=== PATIENT | female | born 1985 | race Caucasian/White ===

== ENCOUNTER 2020-05-26 21:35 | Emergency (ER) | payer MEDICAID, OTHER ==
[~2020-05-26] VITALS: Ht 165 cm; Wt 62.6 kg
[2020-05-26] MEDS ORDERED: TRZ50T PO (22:10)
[2020-05-26] MEDS ORDERED: TIZA4CAP PO (22:10)
[2020-05-26] MEDS ORDERED: SERT100T PO (22:10)
[2020-05-26] MEDS ORDERED: HYDR50CA PO (22:10)
[2020-05-26] MEDS ORDERED: TRAM50TA3 PO (22:10)
--- NOTE | 2020-05-26 23:13 | ED Back Pain ---
General Chief Complaint: Back Problems Stated Complaint: LOWER BACK PAIN/PINCHED NERVE/CYST ON R WRIST Nursing Triage Note: c/o pain from pinched nerve left flank radiating down left leg below knee. denies recent injury. [place] [facility] [place] Sepsis Screen: No Definite Risk Source of Information: Patient Exam Limitations: No Limitations History of Present Illness Date Seen by Provider: May 26, 2020 Time Seen by Provider: 23:07 Initial Comments 34-year-old female presents to the emergency room today with a chief complaint of left sided low back pain. Patient states that she was recently seen at an outlying facility, given Toradol without much relief of symptoms. She was also placed on a steroid Dosepak and given tramadol for pain relief. Patient states that for the first couple of days these medications seem to help however now the medications or not working. She denies any bowel or bladder incontinence. No complaints of urinary retention. No numbness tingling or weakness in her lower extremities. Patient states that the pain radiates down the back of her left leg and stops at the knee. She feels most comfortable when lying on her left side with her knees pulled up. She states when she was working this evening she was having increased pain. No recent traumatic injuries. No recent illnesses. All other review of systems reviewed and negative except as stated above. Location: Lumbar Spine Timing/Duration: 2-3 Days Severity: Moderate Pain/Injury Location: Back Radiation: Upper Legs Method of Injury: Unknown Modifying Factors: Improves With Immobilization, Improves With Rest Associated Symptoms: lower back pain; No loss of bladder control, No loss of bowel control Allergies and Home Medications Allergies Coded Allergies: No Known Drug Allergies (Unverified , 05/26/20) Home Medications Hydrocodone/Acetaminophen 1 Each Tablet, 1 EACH PO Q6H PRN for PAIN-MODERATE (5- 7) Prescribed by: JOSE ABDULLAHI on 05/26/20 6293 Methocarbamol 750 Mg Tablet, 750 MG PO Q4H PRN for muscle spasm Prescribed by: JOSE ABDULLAHI on 05/26/202318 Patient Home Medication List Home Medication List Reviewed: Yes Review of Systems Constitutional: see HPI EENTM: no symptoms reported Respiratory: no symptoms reported Cardiovascular: no symptoms reported Gastrointestinal: no symptoms reported Genitourinary: no symptoms reported : No Musculoskeletal: back pain, muscle pain Skin: no symptoms reported Psychiatric/Neurological: No Symptoms Reported All Other Systems Reviewed Negative Unless Noted: Yes Past [place]-Flyqqu-[place] Hx Patient Social History Alcohol Use: Occasionally Uses Recreational Drug Use: No Smoking Status: Current Everyday Smoker Type Used: Cigarettes 2nd Hand Smoke Exposure: Yes Recent Foreign Travel: No Contact w/Someone Who Travel: No Recent Infectious Disease Expo: No Recent Hopitalizations: No Immunizations Up To Date Tetanus Booster (TDap): Unknown Seasonal Allergies Seasonal Allergies: No Past Medical History Surgeries: Yes (renal stents) Abdominal, Breast, Section, Eye Surgery, Gallbladder Respiratory: No Cardiac: No Neurological: No : No Last Menstrual Period: May 27, 2016 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 oz. kg; 22.00 BMI Method: General Appearance: No Apparent Distress, WD/WN Cardiovascular: Regular Rate, Rhythm Respiratory: Lungs Clear, Normal Breath Sounds, No Accessory Muscle Use, No Re spiratory Distress Gastrointestinal: Non Tender, Soft Extremity: Normal Capillary Refill, Normal Inspection, Normal Range of Motion Neurologic/Psychiatric: Alert, Oriented x3, No Motor/Sensory Deficits, Normal Mood/Affect, inside account executive II-XII Norm as Tested, Other (Negative straight leg raise bilaterally, 2+ DTRs at the patella and ankle jerks bilaterally) Skin: Normal Color, Warm/Dry Progress/Results/Core Measures Results/Orders My Orders Orders - JOSE ABDULLAHI MD Orphenadrine Inj (Ed Only) (Norflex Inje (05/26/20 23:15) Ketorolac Injection (Toradol Injection) (05/26/20 23:15) Rx-Hydrocodone/Apap 5-325 Mg (Rx-Vicodin (05/26/20 23:30) Medications Given in ED Current Medications Medications Dose Ordered Sig/Frieda Route Start Time Stop Time Status Last Admin Dose Admin Acetaminophen/ Hydrocodone Bitart 1 ea Q6H PRN PO 05/26/20 23:30 05/27/20 00:13 DC 05/27/20 00:12 1 EA Ketorolac Tromethamine 30 mg ONCE ONCE IM 05/26/20 23:15 05/26/20 23:16 DC 05/26/20 23:11 30 MG Orphenadrine Citrate 60 mg ONCE ONCE IM 05/26/20 23:15 05/26/20 23:16 DC 05/26/20 23:11 60 MG Vital Signs/I&O 05/26/20 05/27/20 22:02 00:12 Temp 36.8 36.7 Pulse 94 81 Resp 18 18 B/P (MAP) 102/67 (79) 108/69 (79) Pulse Ox 98 99 O2 Delivery Room Air Room Air Blood Pressure Mean: 79 Progress Progress Note : Time: 23:09 Progress Note 34-year-old female presents to the emergency department with a chief complaint of left-sided low back pain. Onset 3 days ago. Evaluation today includes a physical exam. Patient has no signs or symptoms or complaints of cauda equina syndrome. Patient is neurologically intact. She has negative straight leg raise bilaterally. Distal motor or sensory function is intact. Point tenderness over the left sciatic nerve and SI joint. No bony midline tenderness. Patient is already on oral prednisone. She has been taking tizani dine as well as Ultram without relief of symptoms. We will switch her to Robaxin as well as some [place] for pain relief. She is taking ibuprofen. Counseled on use of ibuprofen especially taking it with food. She verbalizes understanding. Will follow up with [facility]. All questions are sought and answered and she is stable for discharge. Departure Impression Primary Impression: Lumbar radiculopathy Disposition: 01 HOME, SELF-CARE Condition: Stable Departure-Patient Inst. Decision time for Depature: 00:05 Referrals: [facility] Patient Instructions: Radiculopathy, Back Extension Exercises Add. Discharge Instructions: Drink plenty of fluids to stay well hydrated. Take your ibuprofen with food as needed, every 6 hours. I have given you a prescription for Robaxin, take this every 4 hours as needed for muscle spasm/pain. I have also given you a prescription for hydrocodone. Please be very careful taking this medication as it can be habit forming/addictive. Take this only for severe pain every 6 hours. Be sure and finish your steroid Dosepak. Please call and follow-up with the [facility] for a primary care physician to further evaluate your pain. Scripts Hydrocodone/Acetaminophen (Hydrocodone-Acetamin 5-325 mg) 1 Each Tablet 1 EACH PO Q6H PRN for PAIN-MODERATE (5-7), #15 TAB Prov: JOSE ABDULLAHI MD 05/26/20 Methocarbamol (Robaxin-750) 750 Mg Tablet 750 MG PO Q4H PRN for muscle spasm, #20 TAB Prov: JOSE ABDULLAHI MD 05/26/20 JOSE ABDULLAHI MD May 26, 2020 23:13
[2020-05-26] MEDS ORDERED: KETOROLAC 30 MG/ML VIAL IM ONE (23:15)
[2020-05-26] MEDS ORDERED: ORPHENADRINE 60 MG/2 ML (NORFLEX) AMP (ED ONLY) IM ONE (23:15)
[2020-05-26] MEDS ORDERED: METH-313 PO (23:19)
[2020-05-26] MEDS ORDERED: ACHD5005 PO (23:19)
[2020-05-26] MEDS ORDERED: RX-HYDROCODONE/APAP 5/325 MG #4 TAB PK PO PRN (23:30)
[2020-05-27 00:12] VITALS: BP 108/69
== END 2020-05-27 00:12 | disposition home or self-care (01) ==
LOC: ER 21:39
DX: M54.16 Radiculopathy, lumbar region (principal); G89.29 Other chronic pain; F17.210 Nicotine dependence, cigarettes, uncomplicated
CPT/HCPCS: 99284

== ENCOUNTER 2020-06-10 20:06 | Emergency (ER) | payer MEDICAID ==
[~2020-06-10] VITALS: Ht 167 cm; Wt 63.5 kg
[~2020-06-10 20:06] MED LIST: ACHD5005 PO; HYDR50CA PO; METH-313 PO; SERT100T PO; TIZA4CAP PO; TRAM50TA3 PO; TRZ50T PO
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
[2020-06-10] MEDS ORDERED: ORPHENADRINE 60 MG/2 ML (NORFLEX) AMP (ED ONLY) IM ONE (21:00)
[2020-06-10] MEDS ORDERED: KETOROLAC 30 MG/ML VIAL IVP ONE (21:00)
[2020-06-10] MEDS ORDERED: ACHD5005 PO (21:11)
[2020-06-10] MEDS ORDERED: predniSONE 20 MG TAB PO ONE (21:15)
[2020-06-10 21:22] VITALS: BP 110/92
[2020-06-10] MEDS ORDERED: PRD20T PO ×2 (21:26→21:28)
== END 2020-06-10 21:34 | disposition home or self-care (01) ==
LOC: EDUNIT# 20:06 → ER 20:09
DX: M54.5 Low back pain (principal); R11.2 Nausea with vomiting, unspecified; R05 Cough; G89.29 Other chronic pain; F17.210 Nicotine dependence, cigarettes, uncomplicated
CPT/HCPCS: 99284

== ENCOUNTER 2020-10-16 14:43 | Emergency (ER) | payer MEDICAID ==
[~2020-10-16] VITALS: Ht 167.7 cm; Wt 68.0 kg
[~2020-10-16 14:43] MED LIST changes: +PRD20T PO
--- NOTE | 2020-10-16 15:03 | ED General ---
General Stated Complaint: BILAT KNEE PAIN/SWELLING Source of Information: Patient Exam Limitations: No Limitations (OZIEL PIRES APRN) History of Present Illness Date Seen by Provider: October 16, 2020 Time Seen by Provider: 15:01 Initial Comments to ER with reports of swelling to bilateral hands and most pronounced bilateral lower extremities from the mid tibia distally. This is been present for 7 days. No cough no fevers no shortness of breath. She just finished Zithromax for a sinus infection. Today she developed some right lower abdominal pain. Timing/Duration: 6-7 Days Severity: Moderate (OZIEL PIRES APRN) Allergies and Home Medications Allergies Coded Allergies: No Known Drug Allergies (Unverified , 05/26/20) Home Medications Furosemide 20 Mg Tablet, 20 MG PO DAILY Prescribed by: OZIEL PIRES on 10/16/20 172 Hydrocodone/Acetaminophen 1 Each Tablet, 1 EACH PO Q6H PRN for PAIN-MODERATE (5- 7) Prescribed by: JOSE ABDULLAHI on 05/26/202318 Hydrocodone/Acetaminophen 1 Each Tablet, 1 EACH PO Q6H PRN for PAIN-SEVERE (8- 10) Prescribed by: RODRIGO BARRY on 06/10/202110 Methocarbamol 750 Mg Tablet, 750 MG PO Q4H PRN for muscle spasm Prescribed by: JOSE ABDULLAHI on 05/26/202318 Pantoprazole Sodium 40 Mg Granpkt.dr, 40 MG PO DAILY Prescribed by: OZIEL PIRES on 10/16/20 172 Prednisone 20 Mg Tab, 20 MG PO DAILY Prescribed by: RODRIGO BARRY on 06/10/202127 Patient Home Medication List Home Medication List Reviewed: Yes (OZIEL PIRES APRN) Review of Systems Review of Systems Constitutional: see HPI; No chills, No fever EENTM: see HPI Respiratory: no symptoms reported Cardiovascular: no symptoms reported Genitourinary: no symptoms reported Musculoskeletal: no symptoms reported Skin: no symptoms reported Psychiatric/Neurological: No Symptoms Reported Hematologic/Lymphatic: No Symptoms Reported Immunological/Allergic: no symptoms reported (OZIEL PIRES APRN) Past Igzflbe-Xgfyrh-Yqkuow Hx Patient Social History Type Used: Cigarettes 2nd Hand Smoke Exposure: Yes Recent Hopitalizations: No (OZIEL PIRES APRN) Immunizations Up To Date Tetanus Booster (TDap): Unknown (OZIEL PIRES APRN) Seasonal Allergies Seasonal Allergies: No (OZIEL PIRES APRN) Past Medical History Surgeries: Yes (renal stents, hemorrhoids, hernia) Abdominal, Breast, Section, Eye Surgery, Gallbladder Respiratory: No Cardiac: No Neurological: No Female 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 oz. kg; 22.00 BMI Method: General Appearance: No Apparent Distress, WD/WN Eyes: Bilateral Eye Normal Inspection, Bilateral Eye PERRL, Bilateral Eye EOMI HEENT: PERRL/EOMI, TMs Normal Neck: Full Range of Motion, Normal Inspection Respiratory: No Accessory Muscle Use, No Respiratory Distress Cardiovascular: Regular Rate, Rhythm, Normal Peripheral Pulses Gastrointestinal: Normal Bowel Sounds, Soft, Tenderness (Right-sided) Extremity: Normal Capillary Refill, Other (2+ pitting edema bilateral feet. The edema extends proximally to the distal aspect of the tibia bilaterally. I do not appreciate any hand swelling but she states they feel swollen.) Neurologic/Psychiatric: Alert, Oriented x3 Skin: Normal Color, Warm/Dry (OZIEL PIRES APRN) Progress/Results/Core Measures Suspected Sepsis SIRS Temperature: Pulse: Respiratory Rate: Laboratory Tests 10/16/20 15:15: White Blood Count 5.5 Blood Pressure / Mean: Laboratory Tests 10/16/20 15:15: Creatinine 0.71, Platelet Count 240, Total Bilirubin 0.6 (OZIEL PIRES APRN) Results/Orders Lab Results Laboratory Tests Test 10/16/20 15:10 10/16/20 15:15 Range/Units Urine Color YELLOW Urine Clarity SL CLOUDY Urine pH 5.5 5-9 Urine Specific [place] <=1.005 1.016-1.022 Urine Protein NEGATIVE NEGATIVE Urine Glucose (UA) NEGATIVE NEGATIVE Urine Ketones NEGATIVE NEGATIVE Urine Nitrite NEGATIVE NEGATIVE Urine Bilirubin NEGATIVE NEGATIVE Urine Urobilinogen 0.2 < = 1.0 MG/DL Urine Leukocyte Esterase NEGATIVE NEGATIVE Urine RBC (Auto) NEGATIVE NEGATIVE Urine RBC NONE /HPF Urine WBC RARE /HPF Urine Squamous Epithelial Cells RARE /HPF Urine Crystals NONE /LPF Urine Bacteria LARGE H /HPF Urine Casts NONE /LPF Urine Mucus NEGATIVE /LPF Urine Culture Indicated YES Urine Opiates Screen NEGATIVE NEGATIVE Urine Oxycodone Screen NEGATIVE NEGATIVE Urine Methadone Screen NEGATIVE NEGATIVE Urine Propoxyphene Screen NEGATIVE NEGATIVE Urine Barbiturates Screen NEGATIVE NEGATIVE Ur Tricyclic Antidepressants Screen NEGATIVE NEGATIVE Urine Phencyclidine Screen NEGATIVE NEGATIVE Urine Amphetamines Screen NEGATIVE NEGATIVE Urine Methamphetamines Screen NEGATIVE NEGATIVE Urine Benzodiazepines Screen NEGATIVE NEGATIVE Urine Cocaine Screen NEGATIVE NEGATIVE Urine Cannabinoids Screen NEGATIVE NEGATIVE White Blood Count 5.5 4.3-11.0 10^3/uL Red Blood Count 3.22 L 3.80-5.11 10^6/uL Hemoglobin 10.4 L 11.5-16.0 g/dL Hematocrit 31 L 35-52 % Mean Corpuscular Volume 97 80-99 fL Mean Corpuscular Hemoglobin 32 25-34 pg Mean Corpuscular Hemoglobin Concent 33 32-36 g/dL Red Cell Distribution Width 16.8 H 10.0-14.5 % Platelet Count 240 130-400 10^3/uL Mean Platelet Volume 10.1 9.0-12.2 fL Immature Granulocyte % (Auto) 0 % Neutrophils (%) (Auto) 52 42-75 % Lymphocytes (%) (Auto) 35 12-44 % Monocytes (%) (Auto) 12 0-12 % Eosinophils (%) (Auto) 1 0-10 % Basophils (%) (Auto) 1 0-10 % Neutrophils # (Auto) 2.8 1.8-7.8 X 10^3 Lymphocytes # (Auto) 1.9 1.0-4.0 X 10^3 Monocytes # (Auto) 0.6 0.0-1.0 X 10^3 Eosinophils # (Auto) 0.1 0.0-0.3 10^3/uL Basophils # (Auto) 0.0 0.0-0.1 10^3/uL Immature Granulocyte # (Auto) 0.0 0.0-0.1 10^3/uL Erythrocyte Sedimentation Rate 17 0-20 MM/HR Sodium Level 142 135-145 MMOL/L Potassium Level 3.3 L 3.6-5.0 MMOL/L Chloride Level 107 98-107 MMOL/L Carbon Dioxide Level 24 21-32 MMOL/L Anion Gap 11 5-14 MMOL/L Blood Urea Nitrogen 5 L 7-18 MG/DL Creatinine 0.71 0.60-1.30 MG/DL Estimat Glomerular Filtration Rate > 60 BUN/Creatinine Ratio 7 Glucose Level 86 70-105 MG/DL Calcium Level 8.6 8.5-10.1 MG/DL Corrected Calcium 9.2 8.5-10.1 MG/DL Total Bilirubin 0.6 0.1-1.0 MG/DL Aspartate Amino Transf (AST/SGOT) 78 H 5-34 U/L Alanine Aminotransferase (ALT/SGPT) 49 0-55 U/L Alkaline Phosphatase 120 40-136 U/L C-Reactive Protein High Sensitivity 0.01 0.00-0.50 MG/DL B-Type Natriuretic Peptide 106.2 H <100.0 PG/ML Total Protein 6.4 6.4-8.2 GM/DL Albumin 3.3 3.2-4.5 GM/DL Thyroid Stimulating Hormone (TSH) 1.35 0.35-4.94 UIU/ML Free Thyroxine 0.64 L 0.70-1.48 NG/DL Serum Test, Qualitative NEGATIVE NEGATIVE (KEN MCMANUS MD) Micro Results Microbiology 10/16/20 Urine Culture - Preliminary, Resulted Gram Negative Kev (KEN MCMANUS MD) Vital Signs/I&O 10/16/20 16:11 Temp 36.1 Pulse 96 Resp 18 B/P (MAP) 113/81 (92) Pulse Ox 98 O2 Delivery Room Air (KEN MCMANUS MD) Vital Signs/I&O Capillary Refill : (OZIEL PIRES APRN) Progress Note : Progress Note I was the attending physician physically present in the emergency department during the care of this patient. I was not directly involved in this patient's care. (KEN MCMANUS MD) Diagnostic Imaging Diagonstic Imaging: CT Comments [facility]: [facility] REC#: [id number] PT STATUS: REG ER : 1985 PHYSICIAN: OZIEL PIRES APRN ADMIT DATE: 10/16/20/ER Draft Date of Exam:10/16/20 CT ABD/PELVIS WO(KIDNEY STONE) PROCEDURE: CT urinary tract, rule out kidney stone. TECHNIQUE: Multiple contiguous axial images were obtained through the abdomen and pelvis without the use of intravenous contrast. Auto Exposure Controls were utilized during the CT exam to meet ALARA standards for radiation dose reduction. INDICATION: Abdominal pain. History of kidney stones. COMPARISON: None. FINDINGS: Mild linear atelectasis or scarring in the lung bases. Cholecystectomy. There are some mild inflammatory changes adjacent to the pylorus, duodenal bulb and head of the pancreas without a discrete fluid collection or evidence of bowel obstruction. Hepatomegaly measuring up to 24 cm in the superior-inferior dimension. The spleen and adrenals are negative on this noncontrast exam. There are a few punctate nonobstructing calyceal tip renal stones in both kidneys. No hydronephrosis or ureteral stones. Pelvic phleboliths. Normal appendix. Bladder is negative. IUD. No free intraperitoneal air/fluid. No lymphadenopathy. No evidence of bowel obstruction. No acute osseous finding. IMPRESSION: 1. There are inflammatory changes in the region of the pylorus, duodenal bulb and head of the pancreas for which the origin is indeterminate. Findings could be due to pancreatitis or gastric/duodenal ulcer disease. No discrete fluid collection or free intraperitoneal air. No evidence of bowel obstruction. 2. Punctate nonobstructing calyceal tip renal stones in both kidneys. No hydronephrosis or ureteral stone. Dictated on workstation # [id number] Dict: 10/16/20 1709 Trans: 10/16/20 1717 [facility] [id number] Interpreted by: IGNACIA BARRIENTOS MD Electronically signed by: (OZIEL PIRES APRN) Departure Impression Primary Impression: Pedal edema Additional Impression: Hepatomegaly Disposition: 01 HOME, SELF-CARE Condition: Stable Departure-Patient Inst. Decision time for Depature: 17:20 (OZIEL PIRES APRN) Referrals: NAVNEET ADAM MD (PCP/Family) Primary Care Physician Patient Instructions: Dependent Edema (DC) Add. Discharge Instructions: 1. Lasix as directed. FOllow up with [facility] on Monday for recheck. Scripts Pantoprazole Sodium (Protonix) 40 Mg Rayne.dr 40 MG PO DAILY, #14 TAB Prov: OZIEL PIRES APRN 10/16/20 Furosemide (Lasix) 20 Mg Tablet 20 MG PO DAILY, #2 TAB Prov: OZIEL PIRES APRN 10/16/20 Work/School Note: Work Release Form Date Seen in the Emergency Department: October 16, 2020 Return to Work: October 18, 2020 OZIEL PIRES APRN October 16, 2020 15:03 KEN MCMANUS MD October 18, 2020 07:10
[2020-10-16 15:21] LABS: BILIRUBIN,URINE NEGATIVE (NEGATIVE); COLOR,URINE YELLOW; GLUCOSE, URINE (UA) NEGATIVE (NEGATIVE); KETONES,URINE NEGATIVE (NEGATIVE); LEUKOCYTE ESTERASE ,URINE NEGATIVE (NEGATIVE); NITRITE,URINE NEGATIVE (NEGATIVE); PH,URINE 5.5 (5-9); PROTEIN,URINE NEGATIVE (NEGATIVE)
[2020-10-16 15:37] LABS: BACTERIA,URINE LARGE /HPF; CLARITY,URINE SL CLOUDY; SQUAMOUS EPITHELIAL CELL,UR RARE /HPF; WBC,URINE RARE /HPF
[2020-10-16 15:46] LABS: ALBUMIN 3.3 GM/DL (3.2-4.5); CHLORIDE 107 MMOL/L (98-107); POTASSIUM 3.3 MMOL/L (3.6-5.0); SODIUM 142 MMOL/L (135-145)
[2020-10-16 15:48] LABS: CALCIUM 8.6 MG/DL (8.5-10.1)
[2020-10-16 15:49] LABS: GLUCOSE 86 MG/DL (70-105); TOTAL PROTEIN 6.4 GM/DL (6.4-8.2)
[2020-10-16 15:49] LABS: AMPHETAMINE SCREEN, URINE NEGATIVE (NEGATIVE); BARBITURATE SCREEN URINE NEGATIVE (NEGATIVE); BENZODIAZEPINES SCREEN URINE NEGATIVE (NEGATIVE); CANNABINOID SCREEN, URINE NEGATIVE (NEGATIVE); COCAINE SCREEN URINE NEGATIVE (NEGATIVE); METHADONE STAT NEGATIVE (NEGATIVE); METHAMPHETAMINE SCREEN URINE S NEGATIVE (NEGATIVE); OPIATE SCREEN URINE NEGATIVE (NEGATIVE); OXYCODONE STAT NEGATIVE (NEGATIVE); PROPOXYPHENE STAT NEGATIVE (NEGATIVE); TRICYCLIC ANTIDEPRESSANTS SCRE NEGATIVE (NEGATIVE)
[2020-10-16 15:50] LABS: CARBON DIOXIDE 24 MMOL/L (21-32)
[2020-10-16 15:51] LABS: BILIRUBIN,TOTAL 0.6 MG/DL (0.1-1.0)
[2020-10-16 15:52] LABS: ALKALINE PHOSPHATASE 120 U/L (40-136)
[2020-10-16 15:53] LABS: CREATININE SERUM 0.71 MG/DL (0.60-1.30); GFR ESTIMATED > 60
[2020-10-16 15:54] LABS: BASOPHILS % (AUTO) 1 % (0-10); BUN/CREATININE RATIO 7; EOSINOPHILS # (AUTO) 0.1 10^3/uL (0.0-0.3); EOSINOPHILS % (AUTO) 1 % (0-10); HEMATOCRIT 31 % (35-52); HEMOGLOBIN 10.4 g/dL (11.5-16.0); LYMPHOCYTES # (AUTO) 1.9 X 10^3 (1.0-4.0); LYMPHOCYTES % (AUTO) 35 % (12-44); MEAN CORPUSCULAR HEMOGLOBIN 32 pg (25-34); MEAN CORPUSCULAR HGB CONC 33 g/dL (32-36); MEAN CORPUSCULAR VOLUME 97 fL (80-99); MEAN PLATELET VOLUME 10.1 fL (9.0-12.2); MONOCYTES # (AUTO) 0.6 X 10^3 (0.0-1.0); MONOCYTES % (AUTO) 12 % (0-12); NEUTROPHILS # (AUTO) 2.8 X 10^3 (1.8-7.8); NEUTROPHILS % (AUTO) 52 % (42-75); PLATELET COUNT 240 10^3/uL (130-400); WHITE BLOOD COUNT 5.5 10^3/uL (4.3-11.0)
[2020-10-16 15:55] LABS: ALANINE AMINOTRANSFERASE 49 U/L (0-55)
[2020-10-16 16:00] LABS: ERYTHROCYTE SEDIMENTATION RATE 17 MM/HR (0-20)
[2020-10-16 16:11] VITALS: BP 113/81
[2020-10-16 16:15] LABS: FREE T4 (FREE THYROXINE) 0.64 NG/DL (0.70-1.48)
--- NOTE | 2020-10-16 17:11 | Diagnostic Imaging Report ---
INDICATION: Upper extremity swelling and history of nephrolithiasis. FINDINGS: The heart size, mediastinal configuration, and pulmonary vascularity are within normal limits. There is no pleural effusion, pneumothorax, or pneumonia. The osseous structures are unremarkable. IMPRESSION: No acute cardiopulmonary abnormality. Dictated by: Dictated on workstation # [id number]
[2020-10-16] MEDS ORDERED: HYDROcodone/APAP 5 MG/325 MG (LORTAB) TAB PO ONE (17:15)
--- NOTE | 2020-10-16 17:18 | Diagnostic Imaging Report ---
PROCEDURE: CT urinary tract, rule out kidney stone. TECHNIQUE: Multiple contiguous axial images were obtained through the abdomen and pelvis without the use of intravenous contrast. Auto Exposure Controls were utilized during the CT exam to meet ALARA standards for radiation dose reduction. INDICATION: Abdominal pain. History of kidney stones. COMPARISON: None. FINDINGS: Mild linear atelectasis or scarring in the lung bases. Cholecystectomy. There are some mild inflammatory changes adjacent to the pylorus, duodenal bulb and head of the pancreas without a discrete fluid collection or evidence of bowel obstruction. Hepatomegaly measuring up to 24 cm in the superior-inferior dimension. The spleen and adrenals are negative on this noncontrast exam. There are a few punctate nonobstructing calyceal tip renal stones in both kidneys. No hydronephrosis or ureteral stones. Pelvic phleboliths. Normal appendix. Bladder is negative. IUD. No free intraperitoneal air/fluid. No lymphadenopathy. No evidence of bowel obstruction. No acute osseous finding. IMPRESSION: 1. There are inflammatory changes in the region of the pylorus, duodenal bulb and head of the pancreas for which the origin is indeterminate. Findings could be due to pancreatitis or gastric/duodenal ulcer disease. No discrete fluid collection or free intraperitoneal air. No evidence of bowel obstruction. 2. Punctate nonobstructing calyceal tip renal stones in both kidneys. No hydronephrosis or ureteral stone. Dictated by: Dictated on workstation # [id number]
[2020-10-16] MEDS ORDERED: FURO-125 PO (17:21)
[2020-10-16] MEDS ORDERED: PANT40SU PO (17:24)
[2020-10-16] MEDS ORDERED: PANTOPRAZOLE 40 MG (PROTONIX) TAB PO ONE (17:30)
[2020-10-16] MEDS ORDERED: FUROSEMIDE 40 MG (LASIX) TAB PO ONE (17:30)
== END 2020-10-16 17:35 | disposition home or self-care (01) ==
LOC: EDUNIT# 14:43 → ER 14:45
DX: R60.0 Localized edema (principal); R16.0 Hepatomegaly, not elsewhere classified; R10.31 Right lower quadrant pain; G89.29 Other chronic pain; M54.9 Dorsalgia, unspecified; Z77.22 Contact with and (suspected) exposure to environmental tobacco smoke (acute) (chronic); Z79.891 Long term (current) use of opiate analgesic
CPT/HCPCS: 36415; 71045; 74176; 80053; 80306; 81000; 83880; 84439; 84443; 84703; 85025; 85652; 86141; 87077; 87088; 87186

== ENCOUNTER 2020-11-06 13:24 | Emergency (ER) | payer MEDICAID ==
[~2020-11-06] VITALS: Ht 167 cm; Wt 68.0 kg
[~2020-11-06 13:24] MED LIST changes: +FURO-125 PO; +PANT40SU PO
[2020-11-06 14:35] LABS: BASOPHILS # (AUTO) 0.1 10^3/uL (0.0-0.1); BASOPHILS % (AUTO) 1 % (0-10); EOSINOPHILS # (AUTO) 0.2 10^3/uL (0.0-0.3); EOSINOPHILS % (AUTO) 4 % (0-10); HEMATOCRIT 32 % (35-52); HEMOGLOBIN 10.3 g/dL (11.5-16.0); LYMPHOCYTES # (AUTO) 1.9 X 10^3 (1.0-4.0); LYMPHOCYTES % (AUTO) 33 % (12-44); MEAN CORPUSCULAR HEMOGLOBIN 34 pg (25-34); MEAN CORPUSCULAR HGB CONC 32 g/dL (32-36); MEAN CORPUSCULAR VOLUME 105 fL (80-99); MEAN PLATELET VOLUME 10.1 fL (9.0-12.2); MONOCYTES # (AUTO) 0.6 X 10^3 (0.0-1.0); MONOCYTES % (AUTO) 11 % (0-12); NEUTROPHILS % (AUTO) 52 % (42-75); PLATELET COUNT 256 10^3/uL (130-400); WHITE BLOOD COUNT 5.8 10^3/uL (4.3-11.0)
[2020-11-06 14:45] LABS: SMEAR SCAN COMMENT YES
[2020-11-06 14:55] LABS: CHLORIDE 104 MMOL/L (98-107); POTASSIUM 3.3 MMOL/L (3.6-5.0); SODIUM 141 MMOL/L (135-145)
[2020-11-06 14:56] LABS: CALCIUM 8.5 MG/DL (8.5-10.1)
[2020-11-06 14:57] LABS: GLUCOSE 84 MG/DL (70-105)
[2020-11-06 14:58] LABS: CARBON DIOXIDE 26 MMOL/L (21-32)
[2020-11-06 15:01] LABS: CREATININE SERUM 0.63 MG/DL (0.60-1.30); GFR ESTIMATED > 60
[2020-11-06 15:02] LABS: BUN/CREATININE RATIO 10
--- NOTE | 2020-11-06 16:39 | Diagnostic Imaging Report ---
PROCEDURE: US Venous Lower Ext Giuliano. TECHNIQUE: Multiple real-time grayscale images were obtained over the lower extremities in various projections, bilaterally. Additional duplex Doppler and color Doppler images were also obtained. INDICATION: Bilateral lower extremity pain. COMPARISON: None FINDINGS: The bilateral common femoral vein, femoral vein, deep femoral vein, and popliteal vein are normal in appearance. These vessels show normal compressibility, color flow and doppler augmentation. The visualized deep calf veins demonstrate no distinct intraluminal thrombus. IMPRESSION: 1. No sonographic evidence of deep venous thrombosis in the bilateral lower extremities. Findings reported to Dr. Landeros by the die maintenance technician at 1622 hours. Dictated by: Dictated on workstation # [id number]
[2020-11-06] MEDS ORDERED: NS 100 ML (IVPB) BAG IV ONE (16:45)
[2020-11-06] MEDS ORDERED: HOLD METFORMIN - RECEIVED CONTRAST 20 ML VIAL IV SCH (16:45)
[2020-11-06] MEDS ORDERED: IOHEXOL 350 MG/ML 100 ML (OMNIPAQUE 350) VIAL IV ONE (16:45)
--- NOTE | 2020-11-06 16:49 | ED General ---
General Chief Complaint: Lower Extremity Stated Complaint: SWOLLEN LEGS Source of Information: Patient Exam Limitations: No Limitations History of Present Illness Date Seen by Provider: Nov 06, 2020 Time Seen by Provider: 14:14 Initial Comments This 35-year-old woman presents to the emergency room with complaints of progressive edema of the lower extremities over the past couple of weeks. She has also started to develop some swelling and tightness in her hands. She denies any shortness of breath or chest pain. She cannot identify any triggering or exacerbating factors. She has not started any new medications. She has been treated with low-dose Lasix and steroids in the outpatient setting without successful improvement in symptoms. She has been seen both in the emergency room and in the clinic without any clear explanation of etiology of her swelling. Rheumatologic disorders such as lupus have been mentioned multiple times. Patient has no family history of autoimmune disorders that she is aware of. She is also experienced some abdominal pain. This was evaluated by CT scan on her prior ER visit. That scan was grossly unremarkable. Allergies and Home Medications Allergies Coded Allergies: No Known Drug Allergies (Unverified , 05/26/20) Home Medications Furosemide 20 Mg Tablet, 20 MG PO DAILY Prescribed by: OZIEL PIRES on 10/16/20 172 Furosemide 40 Mg Tablet, 40 MG PO DAILY Prescribed by: KEN FULLER on 11/06/20 165 Hydrocodone/Acetaminophen 1 Each Tablet, 1 EACH PO Q6H PRN for PAIN-MODERATE (5- 7) Prescribed by: JOSE ABDULLAHI on 05/26/202318 Hydrocodone/Acetaminophen 1 Each Tablet, 1 EACH PO Q6H PRN for PAIN-SEVERE (8- 10) Prescribed by: RODRIGO BARRY on 06/10/202110 Methocarbamol 750 Mg Tablet, 750 MG PO Q4H PRN for muscle spasm Prescribed by: JOSE ABDULLAHI on 05/26/20 231 Pantoprazole Sodium 40 Mg Granpkt.dr, 40 MG PO DAILY Prescribed by: OZIEL PIRES on 10/16/20 172 Potassium Chloride 20 Meq Tablet.er, 20 MEQ PO DAILY Prescribed by: KEN FULLER on 11/06/20 165 Prednisone 20 Mg Tab, 20 MG PO DAILY Prescribed by: RODRIGO BARRY on 06/10/202127 Patient Home Medication List Home Medication List Reviewed: Yes Review of Systems Review of Systems Constitutional: no symptoms reported EENTM: no symptoms reported Respiratory: no symptoms reported Cardiovascular: see HPI Gastrointestinal: no symptoms reported Genitourinary: no symptoms reported : No Musculoskeletal: no symptoms reported Skin: no symptoms reported Psychiatric/Neurological: No Symptoms Reported Hematologic/Lymphatic: No Symptoms Reported Immunological/Allergic: no symptoms reported Past Xhbagum-Whtuhh-Yjktfl Hx Past Med/Social Hx: Reviewed Nursing Past Med/Soc Hx Patient Social History Type Used: Cigarettes 2nd Hand Smoke Exposure: Yes Recent Hopitalizations: No Immunizations Up To Date Tetanus Booster (TDap): Unknown Seasonal Allergies Seasonal Allergies: No Past Medical History Surgeries: Yes (renal stents, hemorrhoids, hernia) Abdominal, Breast, Section, Eye Surgery, Gallbladder Respiratory: No Cardiac: No Neurological: No : No Reproductive Disorders: Yes 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 oz. kg; 24.00 BMI Method: General Appearance: No Apparent Distress, WD/WN HEENT: Normal ENT Inspection Neck: Normal Inspection Respiratory: Lungs Clear, Normal Breath Sounds, No Accessory Muscle Use, No Respiratory Distress Cardiovascular: Regular Rate, Rhythm, No Murmur, Other (Marked lower extremity pitting edema equal bilaterally, tender) Gastrointestinal: Normal Bowel Sounds, Non Tender, Soft Extremity: Normal Inspection, No Pedal Edema Neurologic/Psychiatric: Alert, Oriented x3, No Motor/Sensory Deficits, Normal Mood/Affect, implementation specialist II-XII Norm as Tested Skin: Normal Color, Warm/Dry Progress/Results/Core Measures Suspected Sepsis SIRS Temperature: Pulse: Respiratory Rate: Laboratory Tests 11/06/20 14:29: White Blood Count 5.8 Blood Pressure / Mean: Laboratory Tests 11/06/20 14:29: Creatinine 0.63, Platelet Count 256 Results/Orders Lab Results Laboratory Tests Test 11/06/20 14:29 11/06/20 15:31 Range/Units White Blood Count 5.8 4.3-11.0 10^3/uL Red Blood Count 3.04 L 3.80-5.11 10^6/uL Hemoglobin 10.3 L 11.5-16.0 g/dL Hematocrit 32 L 35-52 % Mean Corpuscular Volume 105 H 80-99 fL Mean Corpuscular Hemoglobin 34 25-34 pg Mean Corpuscular Hemoglobin Concent 32 32-36 g/dL Red Cell Distribution Width 17.2 H 10.0-14.5 % Platelet Count 256 130-400 10^3/uL Mean Platelet Volume 10.1 9.0-12.2 fL Immature Granulocyte % (Auto) 0 % Neutrophils (%) (Auto) 52 42-75 % Lymphocytes (%) (Auto) 33 12-44 % Monocytes (%) (Auto) 11 0-12 % Eosinophils (%) (Auto) 4 0-10 % Basophils (%) (Auto) 1 0-10 % Neutrophils # (Auto) 3.0 1.8-7.8 X 10^3 Lymphocytes # (Auto) 1.9 1.0-4.0 X 10^3 Monocytes # (Auto) 0.6 0.0-1.0 X 10^3 Eosinophils # (Auto) 0.2 0.0-0.3 10^3/uL Basophils # (Auto) 0.1 0.0-0.1 10^3/uL Immature Granulocyte # (Auto) 0.0 0.0-0.1 10^3/uL Sodium Level 141 135-145 MMOL/L Potassium Level 3.3 L 3.6-5.0 MMOL/L Chloride Level 104 98-107 MMOL/L Carbon Dioxide Level 26 21-32 MMOL/L Anion Gap 11 5-14 MMOL/L Blood Urea Nitrogen 6 L 7-18 MG/DL Creatinine 0.63 0.60-1.30 MG/DL Estimat Glomerular Filtration Rate > 60 BUN/Creatinine Ratio 10 Glucose Level 84 70-105 MG/DL Calcium Level 8.5 8.5-10.1 MG/DL C-Reactive Protein High Sensitivity 1.65 H 0.00-0.50 MG/DL B-Type Natriuretic Peptide 99.0 <100.0 PG/ML Serum Test, Qualitative NEGATIVE NEGATIVE Smear Scan YES Erythrocyte Sedimentation Rate 36 H 0-20 MM/HR My Orders Orders - KEN MCMANUS MD Us Venous Lower Ext Liang (11/06/20 15:15) Hs C Reactive Protein (11/06/20 15:16) Erythrocyte Sedimentation Rate (11/06/20 15:16) Iohexol Injection (Omnipaque 350 Mg/Ml 1 (11/06/20 16:45) Received Contrast (Hold Metformin- Contr (11/06/20 16:45) Ns (Ivpb) (Sodium Chloride 0.9% Ivpb Bag (11/06/20 16:45) Vital Signs/I&O 11/06/20 11/06/20 13:40 17:10 Temp 35.8 Pulse 110 88 Resp 18 18 B/P (MAP) 113/65 (81) 110/65 (81) Pulse Ox 96 96 Capillary Refill : Progress Note : Progress Note Ultrasound exams of the legs were negative for DVT. Labs were fairly unremarkable except for a mild increase in ESR and CRP. I discussed the situation with Dr. Toth in regard to imaging options. He suggested offering a CT of the abdomen and pelvis repeated with contrast. This would allow for evaluation of obstruction clotting of the vena cava. Patient did states she is starting to have swelling in her hands as well. IVC obstruction would likely not cause swelling in the upper extremities as well. After discussing this option with the patient, she wishes to seek referral to a specialist before committing to further CT scans. Patient was offered a higher dose of Lasix which she accepted. I am encouraging her to see rheumatology and/or gastroenterology. We did discuss the slight upward trend of her CRP and ESR as possible indicators of autoimmune or inflammatory problem. I am also going to encourage her to seek an echocardiogram ordered in the outpatient setting. Diagnostic Imaging Diagonstic Imaging: Ultrasound Plain Films/CT/US/NM/MRI: leg Comments NAME: JORDI LANIER [facility] REC#: [id number] PT STATUS: REG ER : 1985 PHYSICIAN: KEN MCMANUS MD ADMIT DATE: 11/06/20/ER Signed Date of Exam:11/06/20 US VENOUS LOWER EXT LIANG PROCEDURE: US Venous Lower Ext Liang. TECHNIQUE: Multiple real-time grayscale images were obtained over the lower extremities in various projections, bilaterally. Additional duplex Doppler and color Doppler images were also obtained. INDICATION: Bilateral lower extremity pain. COMPARISON: None FINDINGS: The bilateral common femoral vein, femoral vein, deep femoral vein, and popliteal vein are normal in appearance. These vessels show normal compressibility, color flow and doppler augmentation. The visualized deep calf veins demonstrate no distinct intraluminal thrombus. IMPRESSION: 1. No sonographic evidence of deep venous thrombosis in the bilateral lower extremities. Findings reported to Dr. Landeros by the senior sales associate at 1622 hours. Dictated by: Dictated on workstation # [id number] Dict: 11/06/20 1636 Trans: 11/06/20 1643 [facility] [id number] Interpreted by: MARCELINO SALDANA MD Electronically signed by: MARCELINO SALDANA MD 11/06/20 1646 Reviewed: Reviewed by Me Departure Impression Primary Impression: Anasarca Additional Impression: Leg pain, bilateral Disposition: 01 HOME, SELF-CARE Condition: Stable Departure-Patient Inst. Decision time for Depature: 16:45 Referrals: NAVNEET ADAM MD (PCP/Family) Primary Care Physician Patient Instructions: NO INSTRUCTIONS GIVEN Add. Discharge Instructions: The exact cause of your swelling is uncertain but may be related to an inflammatory process such as rheumatoid arthritis, lupus, inflammatory bowel disease, etc. Referral to a building carpenter helper and/or off premise service representative is recommended. You may also have a discussion with your primary care provider about possibly obtaining an outpatient echocardiogram. This may be beneficial in the evaluation of your swelling. You may try the higher dose of Lasix prescribed from the emergency room to help with your swelling. Also avoid excessive salt. Elevate your legs when at rest. Call with questions or concerns. Return to the ER if you are having worsening symptoms. If you need to return to the emergency room, consider presenting to the emergency room where there are specialist such as building carpenter helper and off premise service representative if you are stable destiny ugh to travel. Return to the nearest ER if you are having signs or symptoms of unstable status such as shortness of breath, chest pain, etc. All discharge instructions reviewed with patient and/or family. Voiced understanding. Scripts Potassium Chloride (Potassium Chloride) 20 Meq Tablet.er 20 MEQ PO DAILY, #5 TAB Prov: KEN MCMANUS MD 11/06/20 Furosemide (Lasix) 40 Mg Tablet 40 MG PO DAILY, #5 TAB Prov: KEN MCMANUS MD 11/06/20 Copy Copies To 1: NAVNEET ADAM MD, JOSHUA T MD Nov 06, 2020 16:49
[2020-11-06] MEDS ORDERED: FURO-124 PO (16:50)
[2020-11-06] MEDS ORDERED: POTA-51 PO (16:50)
[2020-11-06 17:10] VITALS: BP 110/65
== END 2020-11-06 17:18 | disposition home or self-care (01) ==
LOC: EDUNIT# 13:24 → ER 13:28
DX: R60.1 Generalized edema (principal); M79.605 Pain in left leg; M79.604 Pain in right leg; G89.29 Other chronic pain; M54.9 Dorsalgia, unspecified; Z77.22 Contact with and (suspected) exposure to environmental tobacco smoke (acute) (chronic); Z79.52 Long term (current) use of systemic steroids; Z79.891 Long term (current) use of opiate analgesic
CPT/HCPCS: 36415; 80048; 83880; 84703; 85025; 85652; 86141; 93970

== ENCOUNTER 2020-11-11 19:37 | Emergency (ER) | payer MEDICAID ==
[~2020-11-11] VITALS: Ht 167.7 cm; Wt 60.0 kg
[~2020-11-11 19:37] MED LIST changes: +FURO-124 PO; +POTA-51 PO
[2020-11-11 21:04] LABS: BILIRUBIN,URINE NEGATIVE (NEGATIVE); CLARITY,URINE CLEAR; COLOR,URINE YELLOW; GLUCOSE, URINE (UA) NEGATIVE (NEGATIVE); KETONES,URINE NEGATIVE (NEGATIVE); LEUKOCYTE ESTERASE ,URINE NEGATIVE (NEGATIVE); NITRITE,URINE POSITIVE (NEGATIVE); PROTEIN,URINE NEGATIVE (NEGATIVE)
[2020-11-11 21:10] LABS: BASOPHILS # (AUTO) 0.1 10^3/uL (0.0-0.1); BASOPHILS % (AUTO) 1 % (0-10); EOSINOPHILS # (AUTO) 0.2 10^3/uL (0.0-0.3); EOSINOPHILS % (AUTO) 2 % (0-10); HEMATOCRIT 40 % (35-52); HEMOGLOBIN 12.7 g/dL (11.5-16.0); LYMPHOCYTES # (AUTO) 1.7 10^3/uL (1.0-4.0); LYMPHOCYTES % (AUTO) 22 % (12-44); MEAN CORPUSCULAR HEMOGLOBIN 33 pg (25-34); MEAN CORPUSCULAR HGB CONC 32 g/dL (32-36); MEAN CORPUSCULAR VOLUME 104 fL (80-99); MONOCYTES # (AUTO) 0.7 10^3/uL (0.0-1.0); MONOCYTES % (AUTO) 8 % (0-12); NEUTROPHILS # (AUTO) 5.1 10^3/uL (1.8-7.8); NEUTROPHILS % (AUTO) 66 % (42-75); PLATELET COUNT 331 10^3/uL (130-400); WHITE BLOOD COUNT 7.7 10^3/uL (4.3-11.0)
[2020-11-11 21:19] LABS: BENZODIAZEPINES SCREEN URINE POSITIVE (NEGATIVE)
[2020-11-11 21:20] LABS: AMPHETAMINE SCREEN, URINE NEGATIVE (NEGATIVE); BARBITURATE SCREEN URINE NEGATIVE (NEGATIVE); CANNABINOID SCREEN, URINE NEGATIVE (NEGATIVE); COCAINE SCREEN URINE NEGATIVE (NEGATIVE); METHADONE STAT NEGATIVE (NEGATIVE); METHAMPHETAMINE SCREEN URINE S NEGATIVE (NEGATIVE); OPIATE SCREEN URINE POSITIVE (NEGATIVE); OXYCODONE STAT NEGATIVE (NEGATIVE); PROPOXYPHENE STAT NEGATIVE (NEGATIVE); TRICYCLIC ANTIDEPRESSANTS SCRE NEGATIVE (NEGATIVE)
[2020-11-11 21:29] LABS: ALANINE AMINOTRANSFERASE 23 U/L (0-55); ALBUMIN 3.7 GM/DL (3.2-4.5); ALKALINE PHOSPHATASE 144 U/L (40-136); BILIRUBIN,TOTAL 0.3 MG/DL (0.1-1.0); BUN/CREATININE RATIO 7; CALCIUM 9.3 MG/DL (8.5-10.1); CARBON DIOXIDE 25 MMOL/L (21-32); CHLORIDE 105 MMOL/L (98-107); CREATINE KINASE 47 U/L (29-168); CREATININE SERUM 0.68 MG/DL (0.60-1.30); GFR ESTIMATED > 60; GLUCOSE 96 MG/DL (70-105); POTASSIUM 3.6 MMOL/L (3.6-5.0); SODIUM 141 MMOL/L (135-145); TOTAL PROTEIN 7.5 GM/DL (6.4-8.2)
[2020-11-11 21:35] LABS: BACTERIA,URINE LARGE /HPF; WBC,URINE 0-2 /HPF
[2020-11-11 21:36] LABS: CREATINE KINASE MB 0.7 NG/ML (<6.6)
--- NOTE | 2020-11-11 21:43 | ED General ---
General Chief Complaint: Lower Extremity Stated Complaint: BILAT LEGS & FEET SWEELING / L SIDE OF FACE NUMB Nursing Triage Note: Pt ambulatory into ER with multiple complaints. Pt complains of leg swelling x1 month. Pt states that she has seen her PCP and been to ER now 3 times with no diagnosis. Pt also complains of left sided facial numbness on left side since waking up at 1400. Pt states that she also might of had a seizure today at some point but doesn't know. Pt also complains of leg pain. Nursing Sepsis Screen: No Definite Risk Source of Information: Patient History of Present Illness Date Seen by Provider: Nov 11, 2020 Time Seen by Provider: 20:30 Initial Comments PT ARRIVES VIA POV FROM HOME PT WITH MULTIPLE COMPLAINTS C/O BILATERAL LEG SWELLING AND PAIN DUE TO THE SWELLING FOR THE LAST MONTH SYMPTOMS NO DIFFERENT TONIGHT IN ANY WAY NO SWELLING ANYWHERE ELSE ON BODY--ONLY FROM THE KNEES DOWN. PT STATES SHE SAW DR. ADAM A FEW WEEKS AGO FOR THIS PROBLEM PT WAS SEEN HERE ON 10/16/20 AND AGAIN 11/06/20 FOR THIS PROBLEM. PT WAS STARTED ON LASIX 20 MG A DAY, PLUS POTASSIUM. THE NEXT VISIT IT WAS INCREASED TO 40 MG A DAY. SHE JUST STARTED THE HIGHER DOSE 2 DAYS AGO. SHE REPORTS NO IMPROVEMENT. STATES DR. ADAM STARTED HER ON CELEBREX FOR THE PAIN IN HER LEGS. ALSO STATES SHE HAS BEEN AT WORK ALL DAY, NOT A HOT ENVIRONMENT STATES "I GOT REAL PALE AND I KEPT GOING IN AND OUT OF IT ALL DAY"--NO ACTUAL SYNCOPAL EPISODES --STATES "I WENT TO MY KNEES ONE TIME" NO INJURIES OR FALLS FROM THESE EPISODES STATES THE LEFT SIDE OF HER FACE STARTED GOING NUMB AROUND 1700 NO FACIAL DROOP NO PROBLEMS TALKING OR SWALLOWING NO NUMBNESS TO TONGUE NO CHANGE IN VISION NO HEADACHE NO NAUSEA/VOMITING NO LOSS OF TASTE OR SMELL ALSO STATES SHE HAS "BEEN FEELING REALLY ANXIOUS SO I CHECKED MY BLOOD PRESSURE AND IT WAS REALLY HIGH--136/90" PT HAS NOT BEEN DX WITH HTN OR TAKE BP MEDICATIONS NO CHEST PAIN NO PALPITATIONS C/O SLIGHT SHORTNESS OF BREATH ALSO C/O ONGOING COUGH FOR THE LAST COUPLE OF WEEKS NO FEVER HAS NOT TAKEN ANYTHING FOR THE COUGH HAS NOT SOUGHT CARE FOR THIS COMPLAINT AT ANY TIME SYMPTOMS NO DIFFERENT TODAY NO GI SYMPTOMS VOIDING A NORMAL AMOUNT HAS BEEN EATING AND DRINKING NORMALLY PT HAS NOT RECEIVED COVID-19 VACCINE LMP--NOW. HAS IUD IN PLACE AND HAS NOT HAD A PERIOD FOR A LONG TIME. PCP: DR. KIA VALLEJO Allergies and Home Medications Allergies Coded Allergies: No Known Drug Allergies (Unverified , 05/26/20) Home Medications Furosemide 20 Mg Tablet, 20 MG PO DAILY Prescribed by: OZIEL PIRES on 10/16/20 172 Furosemide 40 Mg Tablet, 40 MG PO DAILY Prescribed by: KEN FULLER on 11/06/201649 Hydrocodone/Acetaminophen 1 Each Tablet, 1 EACH PO Q6H PRN for PAIN-MODERATE (5- 7) Prescribed by: JOSE ABDULLAHI on 05/26/202318 Hydrocodone/Acetaminophen 1 Each Tablet, 1 EACH PO Q6H PRN for PAIN-SEVERE (8- 10) Prescribed by: RODRIGO BARRY on 06/10/202110 Methocarbamol 750 Mg Tablet, 750 MG PO Q4H PRN for muscle spasm Prescribed by: JOSE ABDULLAHI on 05/26/202318 Nitrofurantoin Monohyd/M-Cryst 100 Mg Capsule, 1 TAB PO BID Prescribed by: PAUL LLANES on 11/11/202208 Pantoprazole Sodium 40 Mg Granpkt.dr, 40 MG PO DAILY Prescribed by: OZIEL PIRES on 10/16/201723 Potassium Chloride 20 Meq Tablet.er, 20 MEQ PO DAILY Prescribed by: KEN FULLER on 11/06/201649 Prednisone 20 Mg Tab, 20 MG PO DAILY Prescribed by: RODRIGO BARRY on 06/10/202127 Spironolactone 50 Mg Tablet, 50 MG PO DAILY Prescribed by: PAUL LLANES on 11/11/202208 Patient Home Medication List Home Medication List Reviewed: Yes Review of Systems Review of Systems Constitutional: no symptoms reported; No chills, No diaphoresis, No dizziness, No fever EENTM: see HPI; No ear pain, No blurred vision, No double vision, No eye pain, No vision loss, No nose congestion, No throat pain, No throat swelling Respiratory: cough; No orthopnea, No phlegm; short of breath; No wheezing Cardiovascular: see HPI; No chest pain; edema; No palpitations, No syncope Gastrointestinal: no symptoms reported; No abdominal pain, No diarrhea, No nausea, No vomiting Genitourinary: no symptoms reported LMP: Nov 11, 2020 Musculoskeletal: see HPI Skin: no symptoms reported Psychiatric/Neurological: See HPI, Anxiety; Denies Headache; Paresthesia; Denies Weakness Hematologic/Lymphatic: No Symptoms Reported Immunological/Allergic: no symptoms reported Past Asmaqvy-Lcyfsd-Vhglvn Hx Past Med/Social Hx: Reviewed and Corrections made Patient Social History Alcohol Use: Occasionally Uses Drug of Choice: THC Smoking Status: Current Everyday Smoker (1 PPD) Type Used: Cigarettes 2nd Hand Smoke Exposure: Yes Recent Infectious Disease Expo: No Recent Hopitalizations: No Substance type: Marijuana Immunizations Up To Date Tetanus Booster (TDap): Less than 5yrs Seasonal Allergies Seasonal Allergies: No Past Medical History Surgeries: Yes (renal stents, hemorrhoids, hernia; ORIF LEFT ORBIT) Abdominal, Breast, Section, Eye Surgery, Gallbladder, Rectal, Renal Respiratory: No Cardiac: No Neurological: No : No Reproductive Disorders: Yes 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 oz. kg; 21.00 BMI Method: General Appearance: No Apparent Distress, WD/WN HEENT: PERRL/EOMI, TMs Normal, Normal ENT Inspection, Pharynx Normal, Moist Mucous Membranes Neck: Full Range of Motion, Normal Inspection, Non Tender, Supple; No Carotid Bruit, No JVD Respiratory: Normal Breath Sounds, No Accessory Muscle Use, No Respiratory Distress Cardiovascular: Regular Rate, Rhythm, No JVD, No Murmur, Normal Peripheral Pul ses Gastrointestinal: Non Tender, Soft Back: No CVA Tenderness Extremity: Normal Capillary Refill, Normal Range of Motion, No Calf Tenderness, Pedal Edema (1-2+ BILATERALLY/EQUAL. 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; No Abnormal Cerebellar Tests, No Abnormal Gait, No Aphasia, No EOM Palsy, No Facial Droop Skin: Normal Color, Warm/Dry; No Rash; Other (MULTIPLE SORES/SCARS/SCABS TO FACE AND ARMS) Progress/Results/Core Measures Suspected Sepsis Recent Fever Within 48 Hours: No Infection Criteria Present: None New/Unexplained Altered Menta: No Sepsis Screen: No Definite Risk SIRS Temperature: Pulse: 84 Respiratory Rate: 16 Laboratory Tests 11/11/20 21:00: White Blood Count 7.7 Blood Pressure 130 /100 Mean: 110 Laboratory Tests 11/11/20 21:00: Creatinine 0.68, Platelet Count 331, Total Bilirubin 0.3 Results/Orders Lab Results Laboratory Tests Test 11/11/20 20:55 11/11/20 21:00 Range/Units Urine Color YELLOW Urine Clarity CLEAR Urine pH 7.0 5-9 Urine Specific [place] 1.020 1.016-1.022 Urine Protein NEGATIVE NEGATIVE Urine Glucose (UA) NEGATIVE NEGATIVE Urine Ketones NEGATIVE NEGATIVE Urine Nitrite POSITIVE H NEGATIVE Urine Bilirubin NEGATIVE NEGATIVE Urine Urobilinogen 0.2 < = 1.0 MG/DL Urine Leukocyte Esterase NEGATIVE NEGATIVE Urine RBC (Auto) 1+ H NEGATIVE Urine RBC NONE /HPF Urine WBC 0-2 /HPF Urine Squamous Epithelial Cells 2-5 /HPF Urine Crystals NONE /LPF Urine Bacteria LARGE H /HPF Urine Casts NONE /LPF Urine Mucus MODERATE H /LPF Urine Culture Indicated YES Urine Opiates Screen POSITIVE H NEGATIVE Urine Oxycodone Screen NEGATIVE NEGATIVE Urine Methadone Screen NEGATIVE NEGATIVE Urine Propoxyphene Screen NEGATIVE NEGATIVE Urine Barbiturates Screen NEGATIVE NEGATIVE Ur Tricyclic Antidepressants Screen NEGATIVE NEGATIVE Urine Phencyclidine Screen NEGATIVE NEGATIVE Urine Amphetamines Screen NEGATIVE NEGATIVE Urine Methamphetamines Screen NEGATIVE NEGATIVE Urine Benzodiazepines Screen POSITIVE H NEGATIVE Urine Cocaine Screen NEGATIVE NEGATIVE Urine Cannabinoids Screen NEGATIVE NEGATIVE White Blood Count 7.7 4.3-11.0 10^3/uL Red Blood Count 3.82 3.80-5.11 10^6/uL Hemoglobin 12.7 11.5-16.0 g/dL Hematocrit 40 35-52 % Mean Corpuscular Volume 104 H 80-99 fL Mean Corpuscular Hemoglobin 33 25-34 pg Mean Corpuscular Hemoglobin Concent 32 32-36 g/dL Red Cell Distribution Width 15.7 H 10.0-14.5 % Platelet Count 331 130-400 10^3/uL Mean Platelet Volume 10.0 9.0-12.2 fL Immature Granulocyte % (Auto) 0 % Neutrophils (%) (Auto) 66 42-75 % Lymphocytes (%) (Auto) 22 12-44 % Monocytes (%) (Auto) 8 0-12 % Eosinophils (%) (Auto) 2 0-10 % Basophils (%) (Auto) 1 0-10 % Neutrophils # (Auto) 5.1 1.8-7.8 10^3/uL Lymphocytes # (Auto) 1.7 1.0-4.0 10^3/uL Monocytes # (Auto) 0.7 0.0-1.0 10^3/uL Eosinophils # (Auto) 0.2 0.0-0.3 10^3/uL Basophils # (Auto) 0.1 0.0-0.1 10^3/uL Immature Granulocyte # (Auto) 0.0 0.0-0.1 10^3/uL Sodium Level 141 135-145 MMOL/L Potassium Level 3.6 3.6-5.0 MMOL/L Chloride Level 105 98-107 MMOL/L Carbon Dioxide Level 25 21-32 MMOL/L Anion Gap 11 5-14 MMOL/L Blood Urea Nitrogen 5 L 7-18 MG/DL Creatinine 0.68 0.60-1.30 MG/DL Estimat Glomerular Filtration Rate > 60 BUN/Creatinine Ratio 7 Glucose Level 96 70-105 MG/DL Calcium Level 9.3 8.5-10.1 MG/DL Corrected Calcium 9.5 8.5-10.1 MG/DL Magnesium Level 2.0 1.6-2.4 MG/DL Total Bilirubin 0.3 0.1-1.0 MG/DL Aspartate Amino Transf (AST/SGOT) 43 H 5-34 U/L Alanine Aminotransferase (ALT/SGPT) 23 0-55 U/L Alkaline Phosphatase 144 H 40-136 U/L Total Creatine Kinase 47 29-168 U/L Creatine Kinase MB 0.7 <6.6 NG/ML Troponin I < 0.028 <0.028 NG/ML B-Type Natriuretic Peptide 47.9 <100.0 PG/ML Total Protein 7.5 6.4-8.2 GM/DL Albumin 3.7 3.2-4.5 GM/DL Serum Test, Qualitative NEGATIVE NEGATIVE My Orders Orders - SHRADDHA,PAUL K DO Ed Iv/Invasive Line Start (11/11/20 20:39) Ekg Tracing (11/11/20 20:39) Monitor-Rhythm Ecg Trace Only (11/11/20 20:39) Ct Head Wo-R/O Stroke (11/11/20 20:39) Chest 1 View, Ap/Pa Only (11/11/20 20:39) BNP (11/11/20 20:39) Cbc With Automated Diff (11/11/20 20:39) Comprehensive Metabolic Panel (11/11/20 20:39) Creatine Kinase (11/11/20 20:39) Creatine Kinase Mb (11/11/20 20:39) Drug Screen Stat (Urine) (11/11/20 20:39) Hcg,Qualitative Serum (11/11/20 20:39) Magnesium (11/11/20 20:39) Ua Culture If Indicated (11/11/20 20:39) Troponin I (11/11/20 20:39) Urine Culture (11/11/20 20:55) Furosemide Injection (Lasix Injection) (11/11/20 22:00) Rx-Nitrofurantoin [place] (Rx-Macrobid) (11/11/20 21:51) Medications Given in ED Vital Signs/I&O 11/11/20 11/11/20 20:01 22:13 Temp 36.7 36.5 Pulse 84 90 Resp 16 18 B/P (MAP) 130/100 (110) 111/77 (110) Pulse Ox 96 97 O2 Delivery Room Air Room Air Capillary Refill : Less Than 3 Seconds Blood Pressure Mean: 110 Progress Note : Progress Note UNEVENTFUL ER STAY ECG Initial ECG Impression Date: Nov 11, 2020 Initial ECG Impression Time: 21:36 Initial ECG Rate: 84 Initial ECG Rhythm: Normal Sinus Diagnostic Imaging Comments CT HEAD--PER RADIOLOGIST REPORT AT 2149 FINDINGS: No intracranial hemorrhage, mass effect, hydrocephalus or extra-axial fluid collections. No CT evidence of a territorial infarction. ORIF in the floor of the left orbit. No acute osseous findings. Paranasal sinuses and mastoids are unremarkable. IMPRESSION: No acute intracranial CT findings. CXR--PER RADIOLOGIST REPORT FINDINGS: Normal heart size and central pulmonary vascularity. No focal pulmonary opacity. No pleural effusion or pneumothorax. No acute osseous findings. IMPRESSION: No acute cardiopulmonary findings. Reviewed: Reviewed by Me Departure Impression Primary Impression: DEPENDENT LEG EDEMA Additional Impressions: LEFT FACIAL PARESTHESIA UTI (urinary tract infection) Disposition: 01 HOME, SELF-CARE Condition: Stable Departure-Patient Inst. Decision time for Depature: 22:00 Referrals: NAVNEET ADAM MD (PCP/Family) Primary Care Physician Patient Instructions: Dependent Edema (DC), Paresthesia (DC), Urinary Tract Infection, Adult (DC) Add. Discharge Instructions: LIMIT YOUR SODIUM INTAKE TO 2 GRAMS OR LESS A DAY ELEVATE LEGS MUCH POSSIBLE GILBERT HOSE DAILY FOR SWELLING HOLD LASIX, CONTINUE POTASSIUM CONTINUE OTHER MEDICATIONS PRESCRIBED FOLLOW UP WITH YOUR DR THIS WEEK FOR FURTHER CARE All discharge instructions reviewed with patient and/or family. Voiced understanding. Scripts Nitrofurantoin Monohyd/M-Cryst (Macrobid 100 mg Capsule) 100 Mg Capsule 1 TAB PO BID, #20 CAP Prov: PAUL LLANES DO 11/11/20 Spironolactone (Spironolactone) 50 Mg Tablet 50 MG PO DAILY, #5 TAB Prov: PAUL LLANES DO 11/11/20 PAUL LLANES DO Nov 11, 2020 21:43
--- NOTE | 2020-11-11 21:48 | Diagnostic Imaging Report ---
PROCEDURE: CT head wo r/o stroke. TECHNIQUE: Multiple contiguous axial images were obtained through the brain without the use of intravenous contrast. Auto Exposure Controls were utilized during the CT exam to meet ALARA standards for radiation dose reduction. INDICATION: Dizziness. Edema. COMPARISON: None. FINDINGS: No intracranial hemorrhage, mass effect, hydrocephalus or extra-axial fluid collections. No CT evidence of a territorial infarction. ORIF in the floor of the left orbit. No acute osseous findings. Paranasal sinuses and mastoids are unremarkable. IMPRESSION: No acute intracranial CT findings. Dictated by: Dictated on workstation # [id number]
[2020-11-11] MEDS ORDERED: RX-NITROFURANTOIN 100 MG (MACROBID) CAP PPK#2 PO STA (21:51)
[2020-11-11] MEDS ORDERED: FUROSEMIDE 40 MG/4 ML INJ (LASIX) IVP ONE (22:00)
[2020-11-11] MEDS ORDERED: SPIR50TA4 PO (22:09)
[2020-11-11] MEDS ORDERED: NITR-65 PO (22:09)
[2020-11-11 22:13] VITALS: BP 111/77
--- NOTE | 2020-11-11 22:39 | Diagnostic Imaging Report ---
EXAM: CHEST 1 VIEW, AP/PA ONLY INDICATION: Dizziness and edema. COMPARISON: Chest radiograph 10/16/2020. FINDINGS: Normal heart size and central pulmonary vascularity. No focal pulmonary opacity. No pleural effusion or pneumothorax. No acute osseous findings. IMPRESSION: No acute cardiopulmonary findings. Dictated by: Dictated on workstation # [id number]
== END 2020-11-11 22:16 | disposition home or self-care (01) ==
LOC: EDUNIT# 19:37 → ER 19:39
DX: R60.0 Localized edema (principal); R20.2 Paresthesia of skin; N39.0 Urinary tract infection, site not specified; G89.29 Other chronic pain; M54.9 Dorsalgia, unspecified; F17.210 Nicotine dependence, cigarettes, uncomplicated; Z79.891 Long term (current) use of opiate analgesic; Z79.52 Long term (current) use of systemic steroids; Z79.899 Other long term (current) drug therapy
CPT/HCPCS: 36415; 70450; 71045; 80053; 80306; 81000; 82550; 82553; 83735; 83880; 84484; 84703; 85025; 87088; 93005